=== PATIENT | male | born 1955 | race Caucasian/White ===

== ENCOUNTER → 2023-12-27 08:14 | Outpatient (REF) | payer MEDICARE, SELFPAY | LOC: HWRAD 08:14 | PROVIDERS: ATTENDING PHYSICIAN Family Medicine | DX: Z87.891 Personal history of nicotine dependence (principal); Z72.0 Tobacco use | CPT/HCPCS: 71271 ==

== ENCOUNTER → 2025-01-01 08:29 | Outpatient (REF) | payer OTHER, SELFPAY | LOC: HWRAD 08:29 | PROVIDERS: ATTENDING PHYSICIAN Physician Assistant Medical | DX: Z87.891 Personal history of nicotine dependence (principal) | CPT/HCPCS: 71271 ==